=== PATIENT | male | born 1995 | race Caucasian/White ===

== ENCOUNTER → 2016-09-15 | Outpatient (CLI) | payer BC, OTHER | LOC: BMCIMAGING 14:47 | PROVIDERS: ATTEND Psychiatry & Neurology Neurology | DX: M54.2 Cervicalgia (principal) ==

== ENCOUNTER 2017-02-16 20:56 | Emergency (ER) | payer BC, OTHER ==
[2017-02-16 21:03] VITALS: RESP 18
--- NOTE | 2017-02-16 21:36 | EDPHY ---
H & P Time Seen by Provider: 02/16/17 21:06 HPI/ROS: CHIEF COMPLAINT: Alcohol intoxication, requesting detox HISTORY OF PRESENT ILLNESS: 21-year-old male presents to the emergency department requesting alcohol detox. The patient is acutely intoxicated with alcohol. He states he last drank 2 hours prior to arrival. Lately he has been drinking 2 bottles of wine daily. He denies suicidal homicidal ideation. He states that he has a history of anxiety in the past he has taken benzodiazepines. He has not taken any benzodiazepines since October. He has been compensating with alcohol. He admits that he is an alcoholic and he is requesting detox to stop drinking. Currently has no physical complaints. No chest pain or difficulty breathing. No abdominal pain or vomiting. No reported trauma. REVIEW OF SYSTEMS: Constitutional: No fever, no chills. Eyes: No double or blurry vision. ENT: No sore throat. Respiratory: No cough, no shortness of breath. Cardiac: No chest pain. Gastrointestinal: No abdominal pain, vomiting or diarrhea. Genitourinary: No dysuria. Musculoskeletal: No neck or back pain. Skin: No rashes. Neurological: No headache. Past Medical/Surgical History: Alcoholism, anxiety Social History: Single and lives with his mother in [place] Smoking Status: Never smoked Physical Exam: General Appearance: Alert, no distress. Smells strongly of alcohol. Mentating normally and answering questions appropriately. Eyes: Pupils equal and round. Extraocular motions are all intact. ENT: Mouth: Mucous membranes moist. Respiratory: No wheezing, rhonchi, or rales, lungs are clear to auscultation. Cardiovascular: Regular rate and rhythm. Gastrointestinal: Abdomen is soft and nontender, no masses, no rebound or guarding, bowel sounds normal. Neurological: Alert and oriented x 3, cranial nerves II through XII grossly intact Skin: Warm and dry, no rashes. Musculoskeletal: Nontender to palpate along the cervical, thoracic or lumbar spine. Neck is supple. Extremities: Full range of motion and no peripheral edema. Psychiatric: Patient is oriented X 3, there is no agitation. Constitutional: Initial Vital Signs Temperature (C) 36.8 C 02/16/17 20:58 Heart Rate 124 H 02/16/17 20:58 Respiratory Rate 18 02/16/17 20:58 Blood Pressure 127/81 H 02/16/17 20:58 O2 Sat (%) 94 02/16/17 20:58 O2 Delivery Mode Room Air Allergies/Adverse Reactions: No Known Allergies Allergy (Unverified 12/10/10 22:11) Home Medications: Medication Instructions Recorded NO HOME MEDICATIONS 12/10/10 Medical Decision Making ED Course/Re-evaluation: 21-year-old male presents voluntarily to the emergency department requesting alcohol detox. Patient is not suicidal homicidal. He had ETOH breath of 263. I spoke with his mother and sister at bedside. The patient does not want inpatient detox. I offered the [facility]. I also spoke with [facility] label designer who came to talk with the patient about other options for detox. The patient has been accepted at [facility]. Differential Diagnosis: Depression including functional and major depression, situational depression, medication side effect, drugs and alcohol abuse. Altered mental status including but not limited to hypoglycemia, infectious process, electrolyte abnormality, head injury and intoxicants. Departure - Departure Disposition: Home, Routine, Self-Care Clinical Impression: Alcoholic intoxication Qualifiers: Complication of substance-induced condition: uncomplicated Qualified Code(s): F10.920 - Alcohol use, unspecified with intoxication, uncomplicated Condition: Good Instructions: Alcohol Intoxication (ED), Abuse of Alcohol (ED) Additional Instructions: You should go to the [facility] to help with your alcohol addiction. Our mental health label designer has also provided resources for you for intensive outpatient programs as well as inpatient programs for voluntary alcohol detox. Return to the emergency department if you feel depressed, if you feel suicidal, if you feel homicidal, or if you feel worse in any way. Referrals: [facility] [Outside] - As per Instructions
[2017-02-16 22:51] VITALS: BP 114/71; PULSE 120; TEMP 98.6; O2SAT 92
== END 2017-02-16 22:48 | disposition home or self-care (01) ==
DX: F10.920 Alcohol use, unspecified with intoxication, uncomplicated (principal)